=== PATIENT | female | born 1960 | race Caucasian/White ===

== ENCOUNTER → 2017-09-12 | Outpatient (CLI) | payer OTHER ==
--- NOTE | 2017-09-12 11:04 | RAD ---
DATE: September 12, 2017 EXAM: MAMMO SVITLANA SCREENING BILATERAL HISTORY: Screening study. COMPARISON: September 26, 2014 This study was interpreted with the benefit of Computerized Aided Detection (CAD). FINDINGS: The breast parenchyma is heterogeneously dense. There is a skin mole of the medial inferior aspect of the left breast which was marked on the previous mammogram. There is an oval nodular density seen in the lateral aspect of the right breast on 3-D MLO svitlana image #11. This is not seen in the CC svitlana images. Therefore, this most likely represents nodular breast parenchyma but recommend sonography of the lateral one half of the the right breast. IMPRESSION: Nodular density of the lateral aspect of the right breast. Recommend right breast sonography. BI-RADS CATEGORY: 0 INCOMPLETE: NEEDS ADDITIONAL IMAGING EVALUATION AND/OR PRIOR MAMMOGRAMS FOR COMPARISON. RECOMMENDED FOLLOW-UP: ADD ADDITIONAL IMAGING PQRS compliance statement: Patient information was entered into a reminder system with a target due date now for the next imaging study. Mammography is a sensitive method for finding small breast cancers, but it does not detect them all and is not a substitute for careful clinical examination. A negative mammogram does not negate a clinically suspicious finding and should not result in delay in biopsying a clinically suspicious abnormality. "Our facility is accredited by the [employer]amm[employer]." The patient's breast density may affect the ability of mammography to detect breast cancer. There are 4 categories of breast density, A, B, C and D. Breast density A means that most of the breast tissue is replaced with adipose tissue and therefore is not dense. Breast density B means that the breast tissue is mildly dense and scattered. Breast density C means that the breast tissue is heterogeneously dense. Breast density D means that the breast tissue is very dense. Breast densities especially C and D may decrease the sensitivity of mammography to detect breast cancer. Therefore, the patient may benefit from 3-D breast mammography (3D breast tomography) as a part of their screening mammogram. Insurance may or may not pay for this additional imaging. The patient's breast density based on today's mammogram is category C.
== END | disposition home or self-care (01) ==
LOC: MAMMO 07:56
PROVIDERS: ATTEND Specialist
DX: Z12.31 Encounter for screening mammogram for malignant neoplasm of breast (principal)
CPT/HCPCS: 77063; 77067

== ENCOUNTER → 2017-09-18 | Outpatient (CLI) | payer OTHER ==
--- NOTE | 2017-09-18 09:05 | RAD ---
Examination: Ultrasound right breast mammogram History: History of called back for abnormal mammogram Comparison: 09/12/2009 Findings: Ultrasound the right breast from 6-12 o'clock position demonstrates no definite evidence of mass or lesion. Impression: No definite evidence of mass or lesion identified in the right breast from 6 to 12:00 position. BI-RADS Category 3. Probably benign findings. Recommend right breast mammogram in 6 months.
== END | disposition home or self-care (01) ==
LOC: US 07:49
PROVIDERS: ATTEND Specialist
DX: R92.8 Other abnormal and inconclusive findings on diagnostic imaging of breast (principal)
CPT/HCPCS: 76641

== ENCOUNTER → 2018-06-18 | Outpatient (CLI) | payer OTHER ==
[~2018-06-18] MED LIST: IOHEXOL 300 MG/ML 75 ML VIAL. IV ONE
--- NOTE | 2018-06-18 09:42 | RAD ---
EXAM: Abdomen and pelvis CT without and with intravenous contrast. HISTORY: Hematuria. TECHNIQUE: Computed tomographic images of the abdomen and pelvis were obtained prior to and following the administration of 75 cc Omnipaque 300 contrast. Multiplanar reformatting was performed. *One or more of the following individualized dose reduction techniques were utilized for this examination: 1. Automated exposure control. 2. Adjustment of the mA and/or kV according to patient size. 3. Use of iterative reconstruction technique. COMPARISON: None. FINDINGS: Evaluation of the lower thorax is unremarkable. No hepatic lesion is seen. The gallbladder, pancreas and spleen are unremarkable. There is a prominent fluid and gas-filled proximal duodenal diverticulum, an incidental finding. There is nodular thickening of the left adrenal gland, without a discrete nodule. There are small nonobstructing bilateral renal stones. The largest stone on the right measures 1 mm and the largest stone on the left measures 2 mm. No ureteral or bladder stone is seen. There is a 4 mm cyst within the lateral right kidney. There is a suspected 2 mm cyst within the lower pole of the left kidney. No suspicious renal lesion is seen. No urothelial lesion is seen within the opacified portions of the renal collecting system. The majority of the right ureter is not opacified. There is no appendicitis. There is no bowel obstruction. There is moderate colonic stool. The uterus is surgically absent. The adnexal regions are unremarkable. There is slight ectasia of the mid abdominal aorta to a caliber of 2.6 cm. There is aortobiiliac atherosclerosis. There is no lymphadenopathy. There is no suspicious osseous lesion. There are degenerative changes throughout the thoracolumbar spine, including disc bulges with multiple superimposed disc protrusions and multilevel facet arthropathy. The degenerative changes are associated with mild to moderate foraminal stenosis at multiple levels. There is also moderate central canal stenosis at L2-L3, L3-L4 and L4-L5. IMPRESSION: 1. Bilateral nephrolithiasis. The largest stone measures 2 mm on the left. There is no evidence of obstructive uropathy or suspicious urothelial lesion. 2. Tiny right and possibly left renal cysts. 3. Advanced multilevel degenerative change throughout the thoracolumbar spine, with associated foraminal and central canal stenosis. Electronically signed by: Jennifer Harvey MD (06/18/2018 9:39 AM) [id number]
== END | disposition home or self-care (01) ==
LOC: CT 07:48
PROVIDERS: ATTEND Specialist
DX: N20.0 Calculus of kidney (principal); M48.05 Spinal stenosis, thoracolumbar region; M51.35 Other intervertebral disc degeneration, thoracolumbar region; M48.061 Spinal stenosis, lumbar region without neurogenic claudication; I70.0 Atherosclerosis of aorta; M51.25 Other intervertebral disc displacement, thoracolumbar region; M12.88 Other specific arthropathies, not elsewhere classified, other specified site; K57.10 Diverticulosis of small intestine without perforation or abscess without bleeding; Z79.01 Long term (current) use of anticoagulants; Z87.891 Personal history of nicotine dependence
CPT/HCPCS: 74178; Q9967

== ENCOUNTER → 2019-08-23 | Outpatient (CLI) | payer OTHER ==
--- NOTE | 2019-08-23 17:43 | RAD ---
EXAM: 1. BILATERAL DIGITAL 3-D DIAGNOSTIC MAMMOGRAPHY. 2. LEFT BREAST ULTRASOUND. HISTORY: Left breast palpable and tender focus medially at a prior surgical site. TECHNIQUE: Bilateral full field digital images were obtained in CC and MLO projections with tomosynthesis. Computer-aided detection was applied. Sonography of the left breast was performed at the site of concern. COMPARISON: 09/18/2017, 09/12/2017. COMPOSITION: C. The breasts are heterogeneously dense, which may obscure small masses. FINDINGS: A skin marker is placed at the site of concern. The previously noted underlying nodule medially on the left is no longer present. Sonography at this site reveals a focus of skin thickening measuring 7 x 3 mm at this operative site, consistent with a scar. There is no suspicious sonographic finding. Scattered calcifications are benign. The parenchymal pattern is stable. BI-RADS CATEGORY 2: Benign. RECOMMENDATION: 1. Ongoing clinical follow-up of tender or palpable foci. 2. Routine screening mammography in one year. If mammography demonstrates dense breast tissue (heterogenously dense or extremely dense, category C or D), which could hide abnormalities, and if other risk factors for breast cancer have been identified, supplemental screening tests that may be suggested by the ordering physician may be of benefit. Dense breast tissue, in and of itself, is a relatively common condition. Therefore, this information is not provided to cause undue concern, but rather to raise awareness and to promote discussion with the referring physician regarding the presence of other risk factors, in addition to dense breast tissue. The results of this mammography examination is provided to the patient and referring physician. The patient should contact their referring physician if any questions or concerns exist regarding this report. PQRS compliance statement - Patient information was entered into a reminder system with a target due date for the next mammogram. "Our facility is accredited by the [employer]ammography [employer]." Electronically signed by: Caitlin Almonte MD (08/23/2019 5:40 PM) [facility]
== END | disposition home or self-care (01) ==
LOC: MAMMO 13:58
PROVIDERS: ATTEND Specialist
DX: R92.1 Mammographic calcification found on diagnostic imaging of breast (principal); N60.02 Solitary cyst of left breast
CPT/HCPCS: 76641; 77066; G0279; 77062